=== PATIENT | female | born 1995 | race Caucasian/White ===

== ENCOUNTER 2017-09-13 12:34 | Emergency (ER) | END 2017-09-13 18:00 | disposition home or self-care (01) ==

== ENCOUNTER 2017-09-16 22:17 | Inpatient (IN) | END 2017-09-20 13:10 | disposition home or self-care (01) | DRG 607 ==

== ENCOUNTER 2017-10-04 05:44 | Emergency (ER) | END 2017-10-04 09:41 | disposition home or self-care (01) ==

== ENCOUNTER 2017-10-30 09:54 | Inpatient (IN) | END 2017-11-04 15:25 | disposition home or self-care (01) | DRG 194 ==

== ENCOUNTER 2018-03-15 01:52 | Emergency (ER) | END 2018-03-15 05:23 | disposition home or self-care (01) ==

== ENCOUNTER 2018-08-20 11:34 | Emergency (ER) | payer OTHER ==
[~2018-08-20] VITALS: Wt 84.9 kg
[~2018-08-20 11:34] MED LIST: AMOX1TAB10 PO; CLOT10TR MT; METO-335 PO; MUPI22OI2 TOP
[2018-08-20 11:36] VITALS: PULSE 76
[2018-08-20] MEDS ORDERED: SULF1TAB31 PO (13:26)
[2018-08-20] MEDS ORDERED: CEPH-443 PO (13:26)
[2018-08-20 13:56] VITALS: BP 121/80; RESP 15
--- NOTE | 2018-08-20 15:21 | ERD ---
ER Documentation Chief Complaint Chief Complaint LEFT BIG TOE PAIN/INGROWN TOE NAIL? HPI 22-year-old female presents emergency department complaining of a bilateral ingrown toenail on the left foot for the past month. She denies any pain associated with it. States that it hurt couple weeks ago but she did not do a nything about it. Denies any fevers. Denies trauma. Denies medications ROS All systems reviewed and are negative except as per history of present illness. Medications Home Meds Active Scripts Sulfamethoxazole/Trimethoprim* (Bactrim Ds* Tablet) 1 Each Tablet, 1 TAB PO BID, #14 TAB Prov:CHANTELL MONROE PA-C 08/20/18 Cephalexin* (Keflex*) 500 Mg Capsule, 500 MG PO QID for 7 Days, CAP Prov:CHANTELL MONROE-C 08/20/18 Mupirocin* (Bactroban*) 2% -22 Gram Oint...g., 1 APPLIC TOP BID for 7 Days, EA Prov:ESAUROGER 03/15/18 Metoprolol Succinate* (Toprol XL*) 25 Mg Tab.sr.24h, 25 MG PO DAILY for 30 Days, #30 TAB 1 Refill Prov:JODI GUTHRIE M. 11/04/17 Amoxicillin/Potassium Clav (Amox-Clav 875-125 mg Tablet) 875-125 mg Tab, 1 TAB PO BID for 2 Days, #4 TAB Prov:ADRIAN GUTHRIEO M. 11/04/17 Clotrimazole* (Clotrimazole*) 10 Mg Gogo, 10 MG MT 5 TIMES DAILY for 2 Days, #10 LOZENGE Prov:JODI GUTHRIE M. 11/04/17 Allergies Allergies: Coded Allergies: No Known Allergy (Unverified , 09/16/17) PMhx/Soc History of Surgery: No Anesthesia Reaction: No Hx Neurological Disorder: No Hx Respiratory Disorders: No Hx Cardiac Disorders: No Hx Psychiatric Problems: No Hx Miscellaneous Medical Probl: Yes (dermatamyocitis) Hx Alcohol Use: No Hx Substance Use: No Hx Tobacco Use: No Smoking Status: Never smoker Physical Exam Vitals Vital Signs Date Temp Pulse Resp B/P (MAP) Pulse Ox O2 O2 Flow FiO2 Time Delivery Rate 08/20/18 15 121/80 13:56 (94) 08/20/18 98.2 76 18 139/90 99 11:36 (106) Physical Exam Const: No acute distress Head: Atraumatic Eyes: Normal Conjunctiva ENT: Normal External Ears, Nose and Mouth. Neck: Full range of motion. No meningismus. Resp: Clear to auscultation bilaterally Cardio: Regular rate and rhythm, no murmurs Abd: Soft, non tender, non distended. Normal bowel sounds Skin: Bilateral ingrown toenail Back: No midline or flank tenderness Ext: No cyanosis, or edema Neur: Awake and alert Psych: Normal Mood and Affect Procedures/MDM Patient presents with bilateral ingrown toenail of the left foot great toe for the past month. I have instructed patient to do warm soaks 3 times a day with gently lifting the nail bed. Patient was given prescription for pain and antibiotics for mild paronychia. I discussed with her to follow-up with a horticultural worker and return to the emergency department for any worsening signs symptoms Departure Diagnosis: Primary Impression: Ingrown toenail Condition: Stable Patient Instructions: Understanding Ingrown Toenails, Ingrown Toenail, Infected (Abx Only) Referrals: [facility] Additional Instructions: Fill bowl with warm water. Make sure the water is a comfortable temperature before. You may add epsom salt. Gently lift nail bed with a sterile tool Follow-up with [employer] Take all medicines as directed. CHANTELL MONROE PA-C Aug 20, 2018 15:21
== END 2018-08-20 13:56 | disposition home or self-care (01) ==
LOC: FTE 11:34
DX: L60.0 Ingrowing nail (principal)
CPT/HCPCS: 99283

== ENCOUNTER 2019-04-07 22:14 | Emergency (ER) | payer SELFPAY ==
[~2019-04-07] VITALS: Ht 160 cm; Wt 90.9 kg
[~2019-04-07 22:14] MED LIST changes: +CEPH-443 PO; +SULF1TAB31 PO
[2019-04-07 22:17] VITALS: BP 132/92; PULSE 90; RESP 19; Ht 160 cm; Wt 90.9 kg
== END 2019-04-08 00:48 | disposition left against medical advice (07) ==
LOC: FTE 22:14
DX: Z53.21 Procedure and treatment not carried out due to patient leaving prior to being seen by health care provider (principal)